=== PATIENT | male | born 1990 | race Caucasian/White ===

== ENCOUNTER 2016-08-27 08:32 | Emergency (ER) | payer SELFPAY ==
[2016-08-27 08:43] VITALS: BP 136/87; BMI 22.2
--- NOTE | 2016-08-27 08:56 | DR.GENAD ---
HPI - PCP Primary Care Physician: nfd - HPI Comment HPI Comment: PATIENT BROKE LOWER RIGHT FIRST MOLAR WHILE EATING YESTERDAY. INCREASING PAIN SINCE. GUM SWOLLEN LOWER RT FIRST MOLAR. NO FEVER. - Complaint/Symptoms Chief Complaint Doctors Comments: TOOTHACHE TIMES ONE DAY. Chief Complaint:: patient stated he broke his tooth yesterday and thinks its infected today on the bottom right side. - Nurses notes reviewed Nurses Notes Review: Yes - Source History Provided: Patient - Mode of Arrival Mode of Arrival: Ambulatory - Timing Onset of Chief Complaint: 08/25/16 Came on: Suddenly - Duration Duration: Constant Duration: Days - Severity Severity: Moderate PMH - PMH Past Medical History: No Past Medical History: Dyslipidemia, Anxiety (BIPOLAR DISORDER), Seizures Past Surgical History: Yes Surgical History: Ortho Surgery, Other - Family History History of Family Medical Conditions: Yes Family Medical History: Hypertension - Social History Does patient currently use any type of tobacco product: Yes Have you used tobacco products in the last 12 months: Yes Type of Tobacco Use: Cigarettes How many years tobacco product used: 8 Does any household member use tobacco: Yes Alcohol Use: Rarely Do you use any recreational Drugs:: No Lives With: Family Lives Where: Home - infectious screening In the last 2 months have you had wt loss of >10#?: NO Have you had fever, night sweats or hemotysis?: No Have you traveled outside the country in the last 6 months?: No Isolation: Standard ROS - Review of Systems Constitutional: No Symptoms Reported Eyes: No Symptoms Reported ENTM: Mouth Pain (RT LOWER FIRST MOLAR.), Mouth Swelling (RIGHT LOWER FIRST MOLAR) Respiratoy: No Symptoms Reported Cardiovascular: No Symptoms Reported Gastrointestinal/Abdominal: No Symptoms Reported Genitourinary: No Symptoms Reported Neurological: No Symptoms Reported Musculoskeletal: No Symptoms Reported Integumentary: No Symptoms Reported Hematologic/Lymphatic: No Symptoms Reported Endocrine: No Symptoms Reported All Other Systems: Reviewed and Negative PE - Vital Signs Vitals: Temperature 98.4 F Pulse Rate 71 Respiratory Rate 16 Blood Pressure [Left Arm] 132/78 Blood Pressure [Right Arm] 97/52 Blood Pressure 136/87 O2 Sat by Pulse Oximetry 100 - General Limitations: No Limitations General Appearance: Alert - Head Head Exam: Normal Inspection - Eyes Eye exam: Normal Appearance - ENT ENT Exam: Normal External Ear Exam External Ear Exam: Normal External Inspection TM/Canal Exam: Bilateral Normal Nose Exam: Normal Nose Exam Mouth Exam: Other (RIGHT LOWER FIRST MOLER PARTIALLY BROKEN OFF. GUM SWOLLEN AND RED.) Throat Exam: Normal Inspection - Neck Neck Exam: Trachea Midline - Chest Chest Inspection: Symmetric Chest Wall Rise - Respiratory Respiratory Exam: Normal Lung Sounds Bilat Respiratory Exam: Bilateral Clear to Auscultation - Cardiovascular Cardiovascular Exam: Regular Rate, Normal Rhythm, Normal Heart Sounds - Abdominal Exam Abdominal Exam: Normal Inspection - Extremities Extremities Exam: Normal Inspection - Back Back Exam: Normal Inspection - Psychiatric Psychiatric Exam: Normal Affect, Normal Mood - Skin Skin Exam: Normal Color MDM - Differential Diagnosis Differential Diagnosis: DENTAL PAIN, GINGIVITIS Course - Education/Counseling Education/Counseling: Patient, Education Educated On: Diagnosis, Needs for Follow Up - Diagnosis Discharge Problem: Pain, dental, Gingivitis, Dental caries - Discharge Plan Condition: Stable Prescriptions: Acetaminophen W/ Codeine [Tylenol/Codeine #3 300-30 mg] 1 tab PO Q4-6H PRN #15 tab PRN Reason: Pain Amoxicillin [Amoxil 875 mg] 875 mg PO BID #14 tab Ibuprofen [MOTRIN TAB 600 MG *] 600 mg PO TID PRN #20 tab PRN Reason: Pain/Inflammation Tramadol HCl 50 mg PO Q8H PRN #12 tab PRN Reason: Pain - Follow ups/Referrals Follow ups/Referrals: NFD,None [Primary Care Provider] - 3 days - Instructions Instructions: Dental Pain, [id number], Gingivitis, [id number], Dental Caries Additional Instructions: RETURN TO ED IF WORSE. SEE DENTIST OF CHOICE COMING MONDAY.
== END 2016-08-27 09:15 | disposition home or self-care (01) ==
LOC: ER 08:32
DX: K08.89 Other specified disorders of teeth and supporting structures (principal); K05.10 Chronic gingivitis, plaque induced; K02.9 Dental caries, unspecified
CPT/HCPCS: 99281; 99282

== ENCOUNTER 2016-09-02 23:56 | Emergency (ER) | payer SELFPAY ==
[2016-09-03 00:10] VITALS: BMI 22.5
[2016-09-03] MEDS ORDERED: ADACEL TDaP IM ONE ×2 (00:13→00:14)
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
[2016-09-03] MEDS ORDERED: STERILE WATER IRRIGATION IR ONE (00:17)
[2016-09-03] MEDS ORDERED: TORADOL 60 MG VIAL IM ONE (00:38)
[2016-09-03] MEDS ORDERED: TORADOL 60 MG VIAL ONE (01:10)
[2016-09-03] MEDS ORDERED: KEFLEX CAP 500 MG PO ONE ×2 (01:17→01:18)
[2016-09-03] MEDS ORDERED: BACITRACIN ZINC ONE (01:18)
[2016-09-03] MEDS ORDERED: BACTROBAN OINT TOP ONE (01:18)
[2016-09-03 01:41] VITALS: BP 142/84
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
== END 2016-09-03 01:42 | disposition home or self-care (01) ==
LOC: ER 23:56
PROC: 2W39X1Z Immobilization of Left Upper Extremity using Splint (ICD-10-PCS; principal; 2016-09-02)
DX: S62.305A Unspecified fracture of fourth metacarpal bone, left hand, initial encounter for closed fracture (principal); S62.307A Unspecified fracture of fifth metacarpal bone, left hand, initial encounter for closed fracture; S61.432A Puncture wound without foreign body of left hand, initial encounter; S60.221A Contusion of right hand, initial encounter; Y04.0XXA Assault by unarmed brawl or fight, initial encounter; Y92.9 Unspecified place or not applicable
CPT/HCPCS: 29125; 29260; 73130; 90471; 96372; 99283; A4217; J1885